=== PATIENT | male | born 1965 | race Caucasian/White ===

== ENCOUNTER 2016-08-17 19:34 | Emergency (ER) | payer BC ==
[~2016-08-17] VITALS: Ht 182.9 cm; Wt 114.0 kg
[~2016-08-17 19:34] MED LIST: CIAL2.5T PO; LISI-586 PO; RIVA15 PO
[2016-08-17 19:42] VITALS: BP 124/87; PULSE 81; RESP 16; TEMP 98.2; O2SAT 96
[2016-08-17] MEDS ORDERED: KETOROLAC TROMETHAMINE 60 MG/2 ML (IM) VIAL IM ONE (20:00)
[2016-08-17] MEDS ORDERED: DEXAMETHASONE SOD PHOS 4 MG/ML VIAL IM ONE (20:00)
[2016-08-17] MEDS ORDERED: INDO50CA PO (20:01)
[2016-08-17] MEDS ORDERED: PRED20 PO (20:01)
[2016-08-17] MEDS ORDERED: ALLO100T PO (20:03)
[2016-08-17] MEDS ORDERED: AMLO5TAB2 PO (20:03)
[2016-08-17] MEDS ORDERED: LISI-515 PO (20:03)
--- NOTE | 2016-08-17 20:11 | PD ---
HPI Chief Complaint: Pain: Acute or Chronic Time Seen by Provider: 20:07 Travel History International Travel<30 days: No Contact w/Intl Traveler<30days: No Traveled to known affect area: No History of Present Illness HPI 51-year-old male that presents to the ED for evaluation of gout. Per patient he has a history of chronic out. Per patient he gets about 2 attacks a year. Patient takes allopurinol to help with the uremic acid. Per patient the pain started on it became more severe today. Per patient his been taking his medications as prescribed. Per patient the pain is on the left MIP of the left great toe. He denies any injuries. No fevers chills or sweats. Per patient the pain feels similar to his previous gout. Per patient sometimes he does require medications to help with his gout flares. He denies any chest pain or shortness of breath. No other medical problems. No allergies to medication. Has not seen anybody for this. Per patient the pain is 7 out of 10. Burning. No radiated. PFSH Past Medical History Heart Rhythm Problems: No Cancer: No Cardiovascular Problems: Yes Chest Pain: Yes (pe) Congestive Heart Failure: No Diabetes: No Diminished Hearing: No Endocrine: No Gout: Yes Genitourinary: No Hypertension: Yes Musculoskeletal: No Neurologic: No Psychiatric: No Reproductive: No Respiratory: No Thyroid Disease: No Tetanus Vaccination: < 5 Years Influenza Vaccination: No Past Surgical History Abdominal Surgery: No Cardiac Surgery: No Ear Surgery: No Endocrine Surgery: No Eye Surgery: No Thoracic Surgery: No Other Surgery: Yes Social History Alcohol Use: Yes (1-2 DAILY) Tobacco Use: No Substance Use: No Allergies-Medications (Allergen,Severity, Reaction): Coded Allergies: No Known Allergies (Unverified , 08/17/16) Reported Meds & Prescriptions Reported Meds & Active Scripts Active Prednisone 20 Mg Tab 20 Mg PO BID Indomethacin 50 Mg Cap 50 Mg PO TID PRN Take with food, milk, or antacids to decrease stomach adverse effects. Reported Amlodipine (Amlodipine Besylate) 5 Mg Tab 5 Mg PO DAILY Allopurinol 100 Mg Tab 100 Mg PO DAILY Lisinopril 20 Mg Tab 20 Mg PO DAILY Review of Systems Except as stated in HPI: all other systems reviewed are Neg Physical Exam Narrative GENERAL: SKIN: Warm and dry. HEAD: Atraumatic. Normocephalic. EYES: Pupils equal and round. No scleral icterus. No injection or drainage. ENT: No nasal bleeding or discharge. Mucous membranes pink and moist. Tongue is midline. No uvula deviation. NECK: Trachea midline. No JVD. CARDIOVASCULAR: Regular rate and rhythm. RESPIRATORY: No accessory muscle use. Clear to auscultation. Breath sounds equal bilaterally. GASTROINTESTINAL: Abdomen soft, non-tender, nondistended. Hepatic and splenic margins not palpable. MUSCULOSKELETAL: Extremities without clubbing, cyanosis, or edema. No obvious deformities. Patient has full range of motion of the upper and lower extremities bilaterally. Patient does have swelling and redness not on the MIP joint of the left great toe. Full range of motion of the toe but very tender to touch. No sign of infection. Good capillary refill. No bruising or deformity noted. NEUROLOGICAL: Awake and alert. No obvious cranial nerve deficits. Motor grossly within normal limits. Five out of 5 muscle strength in the arms and legs. Normal speech. PSYCHIATRIC: Appropriate mood and affect; insight and judgment normal. Data Data Last Documented VS Vital Signs Date Time Temp Pulse Resp B/P Pulse Ox O2 Delivery O2 Flow Rate FiO2 08/17/16 20:00 08/17/16 19:42 98.2 81 16 96 Orders Ketorolac Inj (Toradol Inj) (08/17/16 20:00) Dexamethasone Inj (Decadron Inj) (08/17/16 20:00) [facility] Medical Decision Making Medical Screen Exam Complete: Yes Emergency Medical Condition: Yes Medical Record Reviewed: Yes Differential Diagnosis Acute gout flare versus gout versus acute on chronic pain Narrative Course 51-year-old male that presents to the ED for evaluation of gout flare. Patient was properly examined and was found to have signs and symptoms consistent with gout flare. No sign of acute medical distress. This time and do recommend Toradol and dexamethasone shot. Patient's agreement with this. Patient will be sent home with prescriptions for indomethacin and prednisone to help with the symptoms. Patient was told to follow with PCP. Continue medications. Continue diet. See ED worsening symptoms. Ice or warm compresses as needed. Diagnosis Primary Impression: Gout flare Qualified Code: M10.9 - Acute gout involving toe of left foot, unspecified cause Patient Instructions: General Instructions Additional Instructions: Take medications as prescribed. Ice as needed. Follow with PCP. See ED worsening symptoms. Med/Other Pt SpecificInfo: Prescription(s) given Scripts Prednisone 20 Mg Tab20 Mg PO BID #10 TAB Prov:Elmira Regalado DO 08/17/16 Indomethacin 50 Mg Cap50 Mg PO TID PRN (PAIN SCALE 1 TO 10) #20 CAP Ref 0 Take with food, milk, or antacids to decrease stomach adverse effects. Prov:Elmira Regalado 08/17/16 Disposition: 01 DISCHARGE HOME Condition: Stable Osmany Cast Aug 17, 2016 20:11
== END 2016-08-17 20:20 | disposition home or self-care (01) ==
LOC: PHEFT 19:34
DX: M10.9 Gout, unspecified (principal); I10 Essential (primary) hypertension; F10.10 Alcohol abuse, uncomplicated
CPT/HCPCS: 96372; 99283; J1100; J1885

== ENCOUNTER 2017-02-19 00:38 | Inpatient (IN) | payer OTHER, BC ==
[2017-02-19] VITALS (9 sets, daily range): BP systolic 115–165; BP diastolic 72–99; PULSE 67–77; RESP 16–18; TEMP 96.7–98.6; O2SAT 95–98
[~2017-02-19] VITALS: Ht 182.9 cm; Wt 100.7 kg
[~2017-02-19 00:38] MED LIST changes: +ALLO100T PO; +AMLO5TAB2 PO; -CIAL2.5T PO; +INDO50CA PO; +LISI-515 PO; -LISI-586 PO; +PRED20 PO; -RIVA15 PO
[2017-02-19] MEDS ORDERED: BUPR100T4 PO (00:49)
[2017-02-19 01:14] LABS: AUTOMATED NEUTROPHIL # 4.4 TH/MM3 (1.8-7.7); BASOPHIL # 0.1 TH/MM3 (0-0.2); BASOPHIL % 1.2 % (0.0-2.0); EOSINOPHIL # 0.3 TH/MM3 (0-0.4); HEMATOCRIT 44.4 % (39.0-51.0); HEMOGLOBIN 14.9 GM/DL (13.0-17.0); LYMPH % 21.1 % (9.0-44.0); LYMPHOCYTE # 1.4 TH/MM3 (1.0-4.8); MEAN CELL VOLUME 84.6 FL (80.0-100.0); MEAN CORPUSCULAR HEMOGLOBIN 28.5 PG (27.0-34.0); MEAN CORPUSCULAR HGB CONC 33.7 % (32.0-36.0); MEAN PLATELET VOLUME 7.3 FL (7.0-11.0); MONO % 9.1 % (0.0-8.0); MONOCYTE # 0.6 TH/MM3 (0-0.9); NEUT % 63.6 % (16.0-70.0); PLATELET COUNT 234 TH/MM3 (150-450); RED BLOOD COUNT 5.25 MIL/MM3 (4.50-5.90); RED CELL DISTRIBUTION WIDTH 13.6 % (11.6-17.2); WHITE BLOOD COUNT 6.9 TH/MM3 (4.0-11.0)
[2017-02-19 01:24] LABS: CHLORIDE 102 MEQ/L (98-107); SODIUM (NA) 138 MEQ/L (136-145)
[2017-02-19 01:27] LABS: CALCIUM 9.5 MG/DL (8.5-10.1)
[2017-02-19 01:28] LABS: ALBUMIN 4.1 GM/DL (3.4-5.0); BICARBONATE 28.4 MEQ/L (21.0-32.0); BLOOD UREA NITROGEN 12 MG/DL (7-18); GLUCOSE,RANDOM 100 MG/DL (74-106); LIPASE 308 U/L (73-393)
[2017-02-19] MEDS ORDERED: SODIUM CHLOR 0.9% 1000 ML INJ 1,000 ML IV SCH (01:28)
[2017-02-19] MEDS ORDERED: PANTOPRAZOLE SODIUM 40 MG VIAL IVP ONE (01:30)
[2017-02-19] MEDS ORDERED: ONDANSETRON HCL 4 MG/2 ML VIAL IVP ONE (01:30)
[2017-02-19] MEDS ORDERED: SODIUM CHLORIDE 0.9% FLUSH 10 ML FLUSH IV FLUSH PRN ×2 (01:30→03:45)
[2017-02-19] MEDS ORDERED: MORPHINE SULFATE 4 MG/ML INJ IV PUSH ONE (01:30)
[2017-02-19] MEDS ORDERED: FAMOTIDINE 20 MG/2 ML VIAL IV PUSH ONE (01:30)
[2017-02-19 01:31] LABS: ALT (GPT) 26 U/L (12-78); AST (GOT) 15 U/L (15-37); GLOMERULAR FILTRATION RATE 70 ML/MIN (>89)
[2017-02-19 01:32] LABS: TOTAL BILIRUBIN ADULT 1.1 MG/DL (0.2-1.0); TOTAL PROTEIN 7.7 GM/DL (6.4-8.2)
[2017-02-19 01:34] LABS: ALKALINE PHOSPHATASE 101 U/L (45-117)
[2017-02-19] MEDS ORDERED: MORPHINE SULFATE 8 MG/ML INJ IV PUSH ONE (01:45)
[2017-02-19] MEDS ORDERED: IOHEXOL 350 MG/ML 10 ML VIAL (for RAD DIAG) IVCONTRAST ONE (02:17)
--- NOTE | 2017-02-19 02:25 | PD ---
HPI Chief Complaint: Abdominal Pain Time Seen by Provider: 01:19 Travel History International Travel<30 days: No Contact w/Intl Traveler<30days: No Traveled to known affect area: No History of Present Illness HPI The patient is a 52-year-old male that complains of upper abdominal pain, slightly to the right of midline, since 6 PM. He said he had pain like this before last week but this went away. He states he has been belching. He denies any nausea. He denies any food intolerance. He states his last bowel movement was yesterday morning, about 18 hours ago and was normal. He denies any melanotic or bloody stools. PFSH Past Medical History Arthritis: Yes (RIGHT KNEE) Anxiety: Yes Depression: Yes Heart Rhythm Problems: No Cancer: No Cardiovascular Problems: Yes Chest Pain: Yes (PULMONARY EMBOLISM) Congestive Heart Failure: No Diabetes: No Diminished Hearing: No Endocrine: No Gout: Yes Genitourinary: No Hypertension: Yes Implanted Vascular Access Dvce: No Musculoskeletal: No Neurologic: No Psychiatric: No Reproductive: No Respiratory: No Thyroid Disease: No Tetanus Vaccination: > 5 Years Influenza Vaccination: No Past Surgical History Abdominal Surgery: No Cardiac Surgery: No Ear Surgery: No Endocrine Surgery: No Eye Surgery: No Joint Replacement: Yes (RIGHT TOTAL KNEE) Thoracic Surgery: No Other Surgery: Yes Social History Alcohol Use: No (QUIT DEC 02, 2016) Tobacco Use: No (QUIT 1994) Substance Use: No Allergies-Medications (Allergen,Severity, Reaction): Coded Allergies: No Known Allergies (Unverified Adverse Reaction, Unknown, 02/19/17) Reported Meds & Prescriptions Reported Meds & Active Scripts Active Prednisone 20 Mg Tab 20 Mg PO BID Indomethacin 50 Mg Cap 50 Mg PO TID PRN Take with food, milk, or antacids to decrease stomach adverse effects. Reported Bupropion HCl 100 Mg Tab 300 Mg PO DAILY Amlodipine (Amlodipine Besylate) 5 Mg Tab 5 Mg PO DAILY Allopurinol 100 Mg Tab 300 Mg PO DAILY Lisinopril 20 Mg Tab 20 Mg PO DAILY Review of Systems Except as stated in HPI: all other systems reviewed are Neg Physical Exam Narrative GENERAL: The patient is alert, oriented 3 in moderate apparent distress with his abdominal discomfort. His vital signs show blood pressure 165/99 but are otherwise normal. SKIN: Focused skin assessment warm/dry. HEAD: Atraumatic. Normocephalic. EYES: Pupils equal and round. No scleral icterus. No injection or drainage. ENT: No nasal bleeding or discharge. Mucous membranes pink and moist. NECK: Trachea midline. No JVD. CARDIOVASCULAR: Regular rate and rhythm. No murmur appreciated. RESPIRATORY: No accessory muscle use. Clear to auscultation. Breath sounds equal bilaterally. GASTROINTESTINAL: Abdomen soft, with tenderness to direct palpation in the right upper quadrant, slightly to the right of midline, nondistended. Hepatic and splenic margins not palpable. No guarding or rebound is present. MUSCULOSKELETAL: No obvious deformities. No clubbing. No cyanosis. No edema. NEUROLOGICAL: Awake and alert. No obvious cranial nerve deficits. Motor grossly within normal limits. Normal speech. PSYCHIATRIC: Appropriate mood and affect; insight and judgment normal. RECTAL EXAM: No masses or tenderness, stool is brown and guaiac-negative. Data Data Last Documented VS Vital Signs Date Time Temp Pulse Resp B/P (MAP) Pulse Ox O2 Delivery O2 Flow Rate FiO2 02/19/17 02:40 74 151/74 (99) 97 Room Air 02/19/17 02:13 16 02/19/17 00:41 97.2 Orders Orders Complete Blood Count With Diff (02/19/17 00:59) Comprehensive Metabolic Panel (02/19/17 00:59) Urinalysis - C+S If Indicated (02/19/17 00:59) Iv Access Insert/Monitor (02/19/17 00:59) Oximetry (02/19/17 00:59) Lipase (02/19/17 00:59) Ct Abd/Pel W Iv Contrast(Rout) (02/19/17 01:28) Ecg Monitoring (02/19/17 01:28) Ondansetron Inj (Zofran Inj) (02/19/17 01:30) Pantoprazole Inj (Protonix Inj) (02/19/17 01:30) Sodium Chlor 0.9% 1000 Ml Inj (Ns 1000 M (02/19/17 01:28) Sodium Chloride 0.9% Flush (Ns Flush) (02/19/17 01:30) Famotidine Inj (Pepcid Inj) (02/19/17 01:30) Morphine Inj (Morphine Inj) (02/19/17 01:45) Iohexol 350 Inj (Omnipaque 350 Inj) (02/19/17 02:17) Piperacil-Tazo 4.5 Gm Premix (Zosyn 4.5 (02/19/17 02:45) Labs Laboratory Tests Test 02/19/17 01:05 White Blood Count 6.9 TH/MM3 Red Blood Count 5.25 MIL/MM3 Hemoglobin 14.9 GM/DL Hematocrit 44.4 % Mean Corpuscular Volume 84.6 FL Mean Corpuscular Hemoglobin 28.5 PG Mean Corpuscular Hemoglobin Concent 33.7 % Red Cell Distribution Width 13.6 % Platelet Count 234 TH/MM3 Mean Platelet Volume 7.3 FL Neutrophils (%) (Auto) 63.6 % Lymphocytes (%) (Auto) 21.1 % Monocytes (%) (Auto) 9.1 % Eosinophils (%) (Auto) 5.0 % Basophils (%) (Auto) 1.2 % Neutrophils # (Auto) 4.4 TH/MM3 Lymphocytes # (Auto) 1.4 TH/MM3 Monocytes # (Auto) 0.6 TH/MM3 Eosinophils # (Auto) 0.3 TH/MM3 Basophils # (Auto) 0.1 TH/MM3 CBC Comment DIFF FINAL Differential Comment Blood Urea Nitrogen 12 MG/DL Creatinine 1.10 MG/DL Random Glucose 100 MG/DL Total Protein 7.7 GM/DL Albumin 4.1 GM/DL Calcium Level 9.5 MG/DL Alkaline Phosphatase 101 U/L Aspartate Amino Transf (AST/SGOT) 15 U/L Alanine Aminotransferase (ALT/SGPT) 26 U/L Total Bilirubin 1.1 MG/DL Sodium Level 138 MEQ/L Potassium Level 3.8 MEQ/L Chloride Level 102 MEQ/L Carbon Dioxide Level 28.4 MEQ/L Anion Gap 8 MEQ/L Estimat Glomerular Filtration Rate 70 ML/MIN Lipase 308 U/L MDM Medical Decision Making Medical Screen Exam Complete: Yes Emergency Medical Condition: Yes Medical Record Reviewed: Yes Interpretation(s) The CBC is normal. The complete metabolic profile shows a GFR of 70, total bilirubin 1.1 but is otherwise unremarkable. The lipase is normal at 308. The CT of the abdomen/pelvis shows mild gallbladder wall thickening with mild pericholecystic fluid. Also noted was a 17 mm exophytic solid mass arising from the anterior medial apex of the right kidney. There is no evidence of hydronephrosis or kidney stone. Differential Diagnosis Ulcer pain, cholelithiasis with colic, cholecystitis, gastritis, colitis, ureterolithiasis Narrative Course The patient came in in severe pain. He likely does have a cholecystitis. It is now 0243 and the patient has pain of a 2/10. He was given 8 mg of morphine IV. All Vela MD Feb 19, 2017 02:25
--- NOTE | 2017-02-19 02:32 | RADRPT ---
EXAM DATE/TIME: 02/19/2017 01:53 [facility] COMPARISON: No previous studies available for comparison. INDICATIONS : Right upper quadrant abdomen pain. IV CONTRAST: 100 cc Omnipaque 350 (iohexol) IV ORAL CONTRAST: No oral contrast ingested. RADIATION DOSE: 19.95 CTDIvol (mGy) MEDICAL HISTORY : Hypertension. SURGICAL HISTORY : None. ENCOUNTER: Initial ACUITY: 1 day PAIN SCALE: 9/10 LOCATION: Right upper quadrant abdomen TECHNIQUE: Volumetric scanning of the abdomen and pelvis was performed. Using automated exposure control and ad justment of the mA and/or kV according to patient size, radiation dose was kept as low as reasonably achievable to obtain optimal diagnostic quality images. DICOM format image data is available electro nically for review and comparison. FINDINGS: LOWER LUNGS: The visualized lower lungs are clear. LIVER: Homogeneous density without lesion. There is no dilation of the biliary tree. There is mild gallblad vel wall thickening and mild pericholecystic fluid identified.. SPLEEN: Mildly enlarged. Tiny low-density focus in the medial splenic parenchyma may be small cyst or hemangi jordyn. PANCREAS: Within normal limits. KIDNEYS: 17 mm exophytic solid mass arising from the anterior medial apex of the right kidney. Tiny right kala l cyst involving posterior midpole cortex. No evidence of hydronephrosis or kidney stone. ADRENAL GLANDS: Within normal limits. VASCULAR: There is no aortic aneurysm. BOWEL/MESENTERY: The stomach, small bowel, and colon demonstrate no acute abnormality. There is no free intraperitone al air or fluid. ABDOMINAL WALL: Tiny fat containing umbilical hernia. RETROPERITONEUM: There is no lymphadenopathy. BLADDER: No wall thickening or mass. REPRODUCTIVE: Within normal limits. INGUINAL: There is no lymphadenopathy or hernia. MUSCULOSKELETAL: Within normal limits for patient age. CONCLUSION: Abnormal gallbladder appearance. Tiny solid mass involving the apex of the right kidney. Mild splenomegaly. Rene Carlos MD on February 19, 2017 at 2:25 Board Certified Radiologist. This report was verified electronically.
[2017-02-19] MEDS ORDERED: PIPERACIL-TAZO 4.5 GM PREMIX 100 ML IV ONE (02:45)
[2017-02-19] MEDS ORDERED: BISACODYL 10 MG SUPP RECTAL PRN (03:45)
[2017-02-19] MEDS ORDERED: SENNOSIDES 8.6 MG TAB PO PRN (03:45)
[2017-02-19] MEDS ORDERED: ONDANSETRON HCL 4 MG/2 ML VIAL IVP PRN (03:45)
[2017-02-19] MEDS ORDERED: ACETAMINOPHEN 325 MG TAB PO PRN (03:45)
[2017-02-19] MEDS ORDERED: NALOXONE HCL 0.4 MG/ML AMP IV PUSH PRN (03:45)
[2017-02-19] MEDS ORDERED: LACTULOSE SYRUP 20 GM/30 ML CUP PO PRN (03:45)
[2017-02-19] MEDS ORDERED: MAGNESIUM HYDROXIDE SUSP 30 ML CUP PO PRN (03:45)
[2017-02-19 03:52] LABS: BILIRUBIN, URINE NEG (NEG); BLOOD, URINE NEG (NEG); GLUCOSE,URINE NEG (NEG); KETONE, URINE NEG (NEG); NITRITE,URINE NEG (NEG); PH, URINE 5.5 (5.0-8.5); URINE LEUKOCYTE ESTERASE NEG (NEG)
[2017-02-19 04:06] LABS: RBC, URINE 0-2 /hpf (0-3); SQUAMOUS EPITHELIAL CELL URINE 0-5 /hpf (0-5); URINE COLOR STRAW (YELLW/STRAW); WBC, URINE 0-2 /hpf (0-5)
[2017-02-19] MEDS: MORPHINE SULFATE 4 MG/ML INJ IV PUSH PRN ×3 (04:52→16:22)
--- NOTE | 2017-02-19 08:23 | PD.CONS ---
HPI Consult Requested By Primary Care Physician Morro Aguila MD Past Family Social History Allergies: Coded Allergies: No Known Allergies (Unverified Allergy, Unknown, 02/19/17) Active Ordered Medications Current Medications Medications (Trade) Dose Ordered Sig/Cherie Route Start Time Stop Time Status Last Admin (NS Flush) 2 ml UNSCH PRN IV FLUSH 02/19/17 03:45 02/19/17 04:52 (NS Flush) 2 ml BID IV FLUSH 02/19/17 09:00 (Tylenol) 650 mg Q4H PRN PO 02/19/17 03:45 (Zofran Inj) 4 mg Q6H PRN IVP 02/19/17 03:45 (Narcan Inj) 0.4 mg UNSCH PRN IV PUSH 02/19/17 03:45 (Elaina-Colace) 1 tab BID PO 02/19/17 09:00 (Milk Of Magnesia Liq) 30 ml Q12H PRN PO 02/19/17 03:45 (Senokot) 17.2 mg Q12H PRN PO 02/19/17 03:45 (Dulcolax Supp) 10 mg DAILY PRN RECTAL 02/19/17 03:45 (Lactulose Liq) 30 ml DAILY PRN PO 02/19/17 03:45 Piperacillin Sod/ Tazobactam Sod 100 ml @ 200 mls/hr Q6H IV 02/19/17 09:00 (Morphine Inj) 4 mg Q3H PRN IV PUSH 02/19/17 03:45 02/19/17 04:52 Physical Exam Vital Signs Vital Signs Date Time Temp Pulse Resp B/P (MAP) Pulse Ox O2 Delivery O2 Flow Rate FiO2 02/19/17 08:00 98.6 75 18 115/79 (91) 95 02/19/17 04:07 02/19/17 04:00 96.7 72 18 120/75 (90) 96 02/19/17 02:40 74 151/74 (99) 97 Room Air 02/19/17 02:13 75 16 97 Room Air 02/19/17 01:47 72 97 Room Air 02/19/17 00:41 97.2 67 16 165/99 (121) 98 Laboratory Laboratory Tests Test 02/19/17 01:05 02/19/17 03:45 White Blood Count 6.9 Red Blood Count 5.25 Hemoglobin 14.9 Hematocrit 44.4 Mean Corpuscular Volume 84.6 Mean Corpuscular Hemoglobin 28.5 Mean Corpuscular Hemoglobin Concent 33.7 Red Cell Distribution Width 13.6 Platelet Count 234 Mean Platelet Volume 7.3 Neutrophils (%) (Auto) 63.6 Lymphocytes (%) (Auto) 21.1 Monocytes (%) (Auto) 9.1 Eosinophils (%) (Auto) 5.0 Basophils (%) (Auto) 1.2 Neutrophils # (Auto) 4.4 Lymphocytes # (Auto) 1.4 Monocytes # (Auto) 0.6 Eosinophils # (Auto) 0.3 Basophils # (Auto) 0.1 CBC Comment DIFF FINAL Differential Comment Blood Urea Nitrogen 12 Creatinine 1.10 Random Glucose 100 Total Protein 7.7 Albumin 4.1 Calcium Level 9.5 Alkaline Phosphatase 101 Aspartate Amino Transf (AST/SGOT) 15 Alanine Aminotransferase (ALT/SGPT) 26 Total Bilirubin 1.1 Sodium Level 138 Potassium Level 3.8 Chloride Level 102 Carbon Dioxide Level 28.4 Anion Gap 8 Estimat Glomerular Filtration Rate 70 Lipase 308 Urine Color STRAW Urine Turbidity CLEAR Urine pH 5.5 Urine Specific [place] 1.005 Urine Protein NEG Urine Glucose (UA) NEG Urine Ketones NEG Urine Occult Blood NEG Urine Nitrite NEG Urine Bilirubin NEG Urine Leukocyte Esterase NEG Urine RBC 0-2 Urine WBC 0-2 Urine Squamous Epithelial Cells 0-5 Urine Bacteria NONE Microscopic Urinalysis Comment CULT NOT INDICATED Result Diagram: 02/19/1710402/19/17104 India Kinney Feb 19, 2017 08:23
[2017-02-19] MEDS: SODIUM CHLORIDE 0.9% FLUSH 10 ML FLUSH IV FLUSH SCH ×2 (08:45→21:18)
[2017-02-19] MEDS: SODIUM CHLOR 0.9% 1000 ML INJ 1,000 ML IV SCH ×2 (08:45→17:21)
[2017-02-19] MEDS: DOCUSATE SODIUM 50 MG/SENNA 8.6 MG TAB PO SCH ×2 (08:46→21:18)
--- NOTE | 2017-02-19 08:49 | RADRPT ---
EXAM DATE/TIME: 02/19/2017 07:53 [facility] COMPARISON: No previous studies available for comparison. INDICATIONS : Right upper quadrant pain. MEDICAL HISTORY : Hypertension. Arthritis. Gout. Pulmonary embolism. SURGICAL HISTORY : Total knee replacement, right. ENCOUNTER: Initial ACUITY: 2 days PAIN SCORE: 4/10 LOCATION: Right upper quadrant MEASUREMENTS: LIVER: 15.6 cm length COMMON DUCT: 4 mm RIGHT KIDNEY: 11.3 x 6.6 x 5.3 cm FINDINGS: LIVER: There is increased echogenicity throughout the liver. No dilated biliary ducts. The portal system is patent. No evidence of ascites. COMMON DUCT: No intraluminal mass or stone visualized. GALLBLADDER: No definite stones are in the gallbladder. There is some sludge in the gallbladder. There is thickeni ng of the gallbladder wall 5 mm. There is a trace of fluid around the gallbladder. PANCREAS: The visualized portions are within normal limits. RIGHT KIDNEY: No evidence of hydronephrosis, stone, or mass. CONCLUSION: 1. There is sludge in the gallbladder with thickening of the gallbladder wall 5 mm. This suggests chr onic gallbladder disease. 2. No definite biliary tract obstruction. 3. Diffuse fatty infiltration of the liver. Greg Almeida MD on February 19, 2017 at 8:45 Board Certified Radiologist. This report was verified electronically.
[2017-02-19] MEDS ORDERED: PIPERACIL-TAZO 4.5 GM PREMIX 100 ML IV SCH (09:00)
--- NOTE | 2017-02-19 09:04 | HHI.HP ---
[facility]ician Morro Aguila MD Admission Diagnosis acute cholecystitis Diagnoses: Travel History International Travel<30 Days: No Contact w/Intl Traveler <30 Da: No Traveled to Known Affected Are: No History of Present Illness This is a pleasant 52 year-old male with past medical history of hypertension, gout, hemochromatosis who presented to the ER yesterday after developing right upper quadrant abdominal pain yesterday evening. The patient states that he ate salad and 3 slices of pork at 6 PM for dinner. Several hours later he started to develop 9 out of 10 right upper quadrant pain which was persistent, no alleviating factors. Associated with nausea but no vomiting. Last bowel movement yesterday morning and was normal. The patient states he also had an episode of right upper quadrant abdominal pain several weeks ago but that it resolves quickly. Patient denies fevers or chills. In the emergency department, abdominal CT scan showed mild gallbladder wall thickening and mild pericholecystic fluid, also a 17 mm exophytic solid mass on the anterior medial right kidney. Gallbladder ultrasound showed sludge in the gallbladder and thickening of the wall however no stones. Gen. surgery was consulted and plans to take the patient for laparoscopic cholecystectomy this morning. Patient continues to have right upper quadrant pain but states it is moderate currently. Patient not previously aware of the kidney mass. He does follow with Dr. Alex Peañ for the hemochromatosis and gets phlebotomy once every 3 months. Patient does endorse decreased appetite and a 30 pound weight loss since knee arthroplasty 3 months ago, denies hematuria. He does have a history of tobacco use quit in 1994. He has a history of PE and DVT in 2015 and was on anticoagulation for 6 months. Review of Systems Constitutional: COMPLAINS OF: Weight loss, DENIES: Fever, Chills Eyes: DENIES: Diplopia, Vision loss Ears, nose, mouth, throat: DENIES: Throat pain, Hoarseness Respiratory: DENIES: Cough, Shortness of breath Cardiovascular: DENIES: Chest pain, Palpitations Gastrointestinal: COMPLAINS OF: Abdominal pain, Nausea, DENIES: Vomiting Genitourinary: DENIES: Hematuria, Dysuria Musculoskeletal: DENIES: Back pain, Neck pain Integumentary: DENIES: Rash Hematologic/lymphatic: DENIES: Lymphadenopathy Neurologic: DENIES: Headache, Localized weakness Psychiatric: DENIES: Anxiety, Confusion Past Family Social History Past Medical History Hemochromatosis Hypertension History of DVT and bilateral pulmonary embolism in 2014 Heterozygous factor V Leiden mutation Gout Past Surgical History Right hand surgery, right total knee arthroplasty November 2016 Reported Medications Allergies Coded Allergies Type Severity Reaction Last Updated Verified No Known Allergies Allergy Unknown 02/19/17 No Active Scripts Medications Dose Route/Sig Max Daily Dose Days Date Category Dose Instructions Bupropion HCl 100 Mg Tab 300 Mg PO DAILY 02/19/17 Reported Amlodipine (Amlodipine Besylate) 5 Mg Tab 5 Mg PO DAILY 08/17/16 Reported Allopurinol 100 Mg Tab 300 Mg PO DAILY 08/17/16 Reported Lisinopril 20 Mg Tab 20 Mg PO DAILY 08/17/16 Reported Prednisone 20 Mg Tab 20 Mg PO BID 08/17/16 Rx Indomethacin 50 Mg Cap 50 Mg PO TID PRN 08/17/16 Rx Take with food, milk, or antacids to decrease stomach adverse effects. Allergies: Coded Allergies: No Known Allergies (Unverified Allergy, Unknown, 02/19/17) Family History Father with hemochromatosis Social History Quit smoking in 1994. Quit drinking alcohol 3 months ago would drink 1-2 beers several times a week. He is and his is also getting a laparoscopic cholecystectomy today. Physical Exam Vital Signs Vital Signs Date Time Temp Pulse Resp B/P (MAP) Pulse Ox O2 Delivery O2 Flow Rate FiO2 02/19/17 08:00 98.6 75 18 115/79 (91) 95 02/19/17 04:07 02/19/17 04:00 96.7 72 18 120/75 (90) 96 02/19/17 02:40 74 151/74 (99) 97 Room Air 02/19/17 02:13 75 16 97 Room Air 02/19/17 01:47 72 97 Room Air 02/19/17 00:41 97.2 67 16 165/99 (121) 98 Physical Exam GENERAL: This is a well-nourished, well-developed patient, in no apparent distress. SKIN: No rashes, ecchymoses or lesions. Cool and dry. HEAD: Atraumatic. Normocephalic. . EYES: Pupils equal round and reactive. Extraocular motions intact. No scleral icterus. No injection or drainage. ENT: Nose without bleeding, purulent drainage or septal hematoma. Throat without erythema, tonsillar hypertrophy or exudate. Uvula midline. Airway patent. NECK: Trachea midline. No JVD or lymphadenopathy. Supple, nontender, no meningeal signs. CARDIOVASCULAR: Regular rate and rhythm without murmurs, gallops, or rubs. RESPIRATORY: Clear to auscultation. Breath sounds equal bilaterally. No wheezes , rales, or rhonchi. GASTROINTESTINAL: Abdomen soft, non-tender, TTP RUQ without guarding. No hepato- splenomegaly, or palpable masses. MUSCULOSKELETAL: Extremities without clubbing, cyanosis, or edema. No joint tenderness, effusion, or edema noted. No calf tenderness. NEUROLOGICAL: Awake and alert. Cranial nerves II through XII intact. Motor and sensory grossly within normal limits. Five out of 5 muscle strength in all muscle groups. Normal speech. Laboratory Laboratory Tests Test 02/19/17 01:05 02/19/17 03:45 White Blood Count 6.9 Red Blood Count 5.25 Hemoglobin 14.9 Hematocrit 44.4 Mean Corpuscular Volume 84.6 Mean Corpuscular Hemoglobin 28.5 Mean Corpuscular Hemoglobin Concent 33.7 Red Cell Distribution Width 13.6 Platelet Count 234 Mean Platelet Volume 7.3 Neutrophils (%) (Auto) 63.6 Lymphocytes (%) (Auto) 21.1 Monocytes (%) (Auto) 9.1 Eosinophils (%) (Auto) 5.0 Basophils (%) (Auto) 1.2 Neutrophils # (Auto) 4.4 Lymphocytes # (Auto) 1.4 Monocytes # (Auto) 0.6 Eosinophils # (Auto) 0.3 Basophils # (Auto) 0.1 CBC Comment DIFF FINAL Differential Comment Blood Urea Nitrogen 12 Creatinine 1.10 Random Glucose 100 Total Protein 7.7 Albumin 4.1 Calcium Level 9.5 Alkaline Phosphatase 101 Aspartate Amino Transf (AST/SGOT) 15 Alanine Aminotransferase (ALT/SGPT) 26 Total Bilirubin 1.1 Sodium Level 138 Potassium Level 3.8 Chloride Level 102 Carbon Dioxide Level 28.4 Anion Gap 8 Estimat Glomerular Filtration Rate 70 Lipase 308 Urine Color STRAW Urine Turbidity CLEAR Urine pH 5.5 Urine Specific [place] 1.005 Urine Protein NEG Urine Glucose (UA) NEG Urine Ketones NEG Urine Occult Blood NEG Urine Nitrite NEG Urine Bilirubin NEG Urine Leukocyte Esterase NEG Urine RBC 0-2 Urine WBC 0-2 Urine Squamous Epithelial Cells 0-5 Urine Bacteria NONE Microscopic Urinalysis Comment CULT NOT INDICATED Result Diagram: 02/19/1710402/19/17104 Caprini VTE Risk Assessment Caprini VTE Risk Assessment: Mod/High Risk (score >= 2) Caprini Risk Assessment Model Point Value = 1 Point Value = 2 Point Value = 3 Point Value = 5 Age 41-60 Minor surgery BMI > 25 kg/m2 Swollen legs Varicose veins or History of unexplained or recurrent spontaneous Oral contraceptives or hormone replacement Sepsis (< 1 month) Serious lung disease, including pneumonia (< 1 month) Abnormal pulmonary function Acute myocardial infarction Congestive heart failure (< 1 month) History of inflammatory bowel disease Medical patient at bed rest Age 61-74 Arthroscopic surgery Major open surgery (> 45 min) Laparoscopic surgery (> 45 min) Malignancy Confined to bed (> 72 hours) Immobilizing plaster cast Central venous access Age >= 75 History of VTE Family history of VTE Factor V Leiden Prothrombin [id number] Lupus anticoagulant Anticardiolipin antibodies Elevated serum homocysteine Heparin-induced thrombocytopenia Other congenital or acquired thrombophilia Stroke (< 1 month) Elective arthroplasty Hip, pelvis, or leg fracture Acute spinal cord injury (< 1 month) Prophylaxis Regimen Total Risk Factor Score Risk Level Prophylaxis Regimen 0-1 Low Early ambulation 2 Moderate Order ONE of the following: *Sequential Compression Device (SCD) *Heparin 5000 units SQ BID 3-4 Higher Order ONE of the following medications: *Heparin 5000 units SQ TID *Enoxaparin/Lovenox 40 mg SQ daily (WT < 150 kg, CrCl > 30 mL/min) *Enoxaparin/Lovenox 30 mg SQ daily (WT < 150 kg, CrCl > 10-29 mL/min) *Enoxaparin/Lovenox 30 mg SQ BID (WT < 150 kg, CrCl > 30 mL/min) AND/OR *Sequential Compression Device (SCD) 5 or more Highest Order ONE of the following medications: *Heparin 5000 units SQ TID (Preferred with Epidurals) *Enoxaparin/Lovenox 40 mg SQ daily (WT < 150 kg, CrCl > 30 mL/min) *Enoxaparin/Lovenox 30 mg SQ daily (WT < 150 kg, CrCl > 10-29 mL/min) *Enoxaparin/Lovenox 30 mg SQ BID (WT < 150 kg, CrCl > 30 mL/min) AND *Sequential Compression Device (SCD) Assessment and Plan Problem List: (1) Acute cholecystitis ICD Code: K81.0 - Acute cholecystitis (2) Hemochromatosis ICD Code: E83.119 - Hemochromatosis, unspecified (3) Right kidney mass ICD Code: N28.89 - Other specified disorders of kidney and ureter (4) Hypertension ICD Code: I10 - Hypertension Status: Acute Assessment and Plan -Acute cholecystitis - per general surgery he is going for laparoscopic cholecystectomy today. -Solid exophytic right kidney mass 17 mm in size - patient informed this may be renal cell carcinoma and he needs outpatient urology follow-up within the next several weeks. Patient provided a copy of his CT scan. Patient to see his primary care physician or fur storage clerk for urology referral. Patient voices understanding. -Hemochromatosis - undergoes phlebotomy every 3 months. No elevation of liver enzymes. -Hypertension - resume lisinopril and Norvasc. -History of DVT and bilateral pulmonary embolism in 2014, Heterozygous factor V Leiden mutation -Gout - resume allopurinol -DVT prophylaxis with SCDs, avoid pharmacologic prophylaxis due to surgery Maria De Jesus Pena MD Feb 19, 2017 09:04
--- NOTE | 2017-02-19 10:07 | PD.CONS ---
cc: Romero Weaver MD HPI Service General Surgery Consult Requested By Dr. Frost Reason for Consult Abdominal pain; Cholecystitis Primary Care Physician Morro Aguila MD History of Present Illness This is a 52-year-old male with a past medical history of right knee arthritis, DVT/PE and hypertension. About 6 PM last night the patient developed severe right upper quadrant pain without associated nausea or vomiting. The patient had salad and pork for dinner. The patient had a similar type episode of abdominal pain without associated nausea or vomiting last week but the pain resolved on its own and the patient went about his normal daily activities. This time, due to the severe abdominal pain without resolution, the patient came to the emergency department. A CT abdomen and pelvis was obtained which showed abnormal gallbladder appearance. The patient has a normal white blood cell count. The patient's liver enzymes are essentially normal. A General Surgery consultation has been requested for evaluation of cholecystitis and possible laparoscopic cholecystectomy. Review of Systems Constitutional: DENIES: Fatigue, Weight loss Endocrine: DENIES: Polydipsia, Polyuria, Polyphagia Eyes: DENIES: Blurred vision Ears, nose, mouth, throat: DENIES: Hearing loss Respiratory: DENIES: Apneas Cardiovascular: DENIES: Chest pain Gastrointestinal: COMPLAINS OF: Abdominal pain, DENIES: Constipation, Diarrhea , Nausea, Vomiting Genitourinary: DENIES: Urinary frequency Musculoskeletal: DENIES: Joint pain Integumentary: DENIES: Abnormal pigmentation Hematologic/lymphatic: DENIES: Bruising Immunologic/allergic: DENIES: Eczema Neurologic: DENIES: Abnormal gait, Headache Psychiatric: DENIES: Confusion, Mood changes, Depression Past Family Social History Past Medical History Right knee arthritis DVT/PE Hypertension Past Surgical History Total right knee replacement Right hand surgery Reported Medications Amlodipine Lisinopril Allopurinol Indomethacin Bupropion Allergies: Coded Allergies: No Known Allergies (Unverified Allergy, Unknown, 02/19/17) Active Ordered Medications Current Medications Medications (Trade) Dose Ordered Sig/Cherie Route Start Time Stop Time Status Last Admin (NS Flush) 2 ml UNSCH PRN IV FLUSH 11/2/17 03:45 02/19/17 04:52 (NS Flush) 2 ml BID IV FLUSH 02/19/17 09:00 (Tylenol) 650 mg Q4H PRN PO 02/19/17 03:45 (Zofran Inj) 4 mg Q6H PRN IVP 02/19/17 03:45 (Narcan Inj) 0.4 mg UNSCH PRN IV PUSH 02/19/17 03:45 (Elaina-Colace) 1 tab BID PO 02/19/17 09:00 (Milk Of Magnesia Liq) 30 ml Q12H PRN PO 02/19/17 03:45 (Senokot) 17.2 mg Q12H PRN PO 02/19/17 03:45 (Dulcolax Supp) 10 mg DAILY PRN RECTAL 02/19/17 03:45 (Lactulose Liq) 30 ml DAILY PRN PO 02/19/17 03:45 (Morphine Inj) 4 mg Q3H PRN IV PUSH 02/19/17 03:45 02/19/17 08:54 Sodium Chloride 1,000 ml @ 100 mls/hr Q10H IV 02/19/17 08:30 02/19/17 08:45 Piperacillin Sod/ Tazobactam Sod 50 ml @ 100 mls/hr Q8H IV 02/19/17 09:00 (Zyloprim) 300 mg DAILY PO 02/20/17 09:00 (Norvasc) 5 mg DAILY PO 02/20/17 09:00 (Prinivil) 20 mg DAILY PO 02/20/17 09:00 Family History Noncontributory Social History Denies tobacco use Denies EtOH use Denies illicit drug use Physical Exam Vital Signs Vital Signs Date Time Temp Pulse Resp B/P (MAP) Pulse Ox O2 Delivery O2 Flow Rate FiO2 02/19/17 08:00 98.6 75 18 115/79 (91) 95 02/19/17 04:07 02/19/17 04:00 96.7 72 18 120/75 (90) 96 02/19/17 02:40 74 151/74 (99) 97 Room Air 02/19/17 02:13 75 16 97 Room Air 02/19/17 01:47 72 97 Room Air 02/19/17 00:41 97.2 67 16 165/99 (121) 98 Physical Exam GENERAL: 52 year old male resting in bed in no acute distress. SKIN: Warm and dry. HEAD: Atraumatic. Normocephalic. EYES: Pupils equal and round. No scleral icterus. No injection or drainage. ENT: No nasal bleeding or discharge. Mucous membranes pink and moist. NECK: Trachea midline. CARDIOVASCULAR: Regular rate and rhythm. RESPIRATORY: No accessory muscle use. Clear to auscultation. Breath sounds equal bilaterally. GASTROINTESTINAL: Abdomen soft, nondistended. RUQ tenderness with palpation. No visible scars on abdomen. Small reducible umbilical hernia. MUSCULOSKELETAL: Extremities without clubbing, cyanosis, or edema. No obvious deformities. NEUROLOGICAL: Awake and alert. No obvious cranial nerve deficits. Motor grossly within normal limits. Five out of 5 muscle strength in the arms and legs. Normal speech. PSYCHIATRIC: Appropriate mood and affect; insight and judgment normal. Laboratory Laboratory Tests Test 02/19/17 01:05 02/19/17 03:45 02/19/17 09:40 White Blood Count 6.9 Red Blood Count 5.25 Hemoglobin 14.9 Hematocrit 44.4 Mean Corpuscular Volume 84.6 Mean Corpuscular Hemoglobin 28.5 Mean Corpuscular Hemoglobin Concent 33.7 Red Cell Distribution Width 13.6 Platelet Count 234 Mean Platelet Volume 7.3 Neutrophils (%) (Auto) 63.6 Lymphocytes (%) (Auto) 21.1 Monocytes (%) (Auto) 9.1 Eosinophils (%) (Auto) 5.0 Basophils (%) (Auto) 1.2 Neutrophils # (Auto) 4.4 Lymphocytes # (Auto) 1.4 Monocytes # (Auto) 0.6 Eosinophils # (Auto) 0.3 Basophils # (Auto) 0.1 CBC Comment DIFF FINAL Differential Comment Blood Urea Nitrogen 12 Creatinine 1.10 Random Glucose 100 Total Protein 7.7 Albumin 4.1 Calcium Level 9.5 Alkaline Phosphatase 101 Aspartate Amino Transf (AST/SGOT) 15 Alanine Aminotransferase (ALT/SGPT) 26 Total Bilirubin 1.1 Sodium Level 138 Potassium Level 3.8 Chloride Level 102 Carbon Dioxide Level 28.4 Anion Gap 8 Estimat Glomerular Filtration Rate 70 Lipase 308 Urine Color STRAW Urine Turbidity CLEAR Urine pH 5.5 Urine Specific [place] 1.005 Urine Protein NEG Urine Glucose (UA) NEG Urine Ketones NEG Urine Occult Blood NEG Urine Nitrite NEG Urine Bilirubin NEG Urine Leukocyte Esterase NEG Urine RBC 0-2 Urine WBC 0-2 Urine Squamous Epithelial Cells 0-5 Urine Bacteria NONE Microscopic Urinalysis Comment CULT NOT INDICATED Result Diagram: 02/19/1710402/19/17104 Assessment and Plan Assessment and Plan 52 year old male with RUQ abdominal pain; cholecystitis -Plan for laparoscopic cholecystectomy this afternoon -Nothing by mouth -IVF -Continue Zosyn -Hold all anticoagulation -Obtain consents -Procedure explained in detail to the patient; all questions answered -Discussed with ENOCH Sharma -Thank you for this consult; We will continue to follow Attending Note - Dr. Weaver RUQ tenderness; no other pain Risks, benefits, alternatives, convalescence discussed with patient and ; they vocalize understanding and agree to proceed with surgery. The exam, history, and the medical decision-making described in the above note were completed with the assistance of the mid-level provider. I reviewed and agree with the findings presented. I attest that I had a [id number] encounter with the patient on the same day, and personally performed and documented my assessment and findings in the medical record. Discussed Condition With India Aguirre Dr., RN Feb 19, 2017 10:07 Romero Weaver MD Feb 19, 2017 21:54
[2017-02-19 10:18] LABS: PROTHROMBIN TIME - PATIENT 10.7 SEC (9.8-11.6)
[2017-02-19] MEDS: PIPERACIL-TAZO 3.375 GM PREMIX 50 ML IV SCH ×2 (10:21→17:21)
[2017-02-19] MEDS ORDERED: CHLORHEXIDINE GLUCONATE 2 % 1 PACK (2 CLOTHS) TOPICAL PRN (11:45)
[2017-02-19] MEDS ORDERED: METOPROLOL TARTRATE 25 MG TAB PO PRN (11:45)
[2017-02-19] MEDS ORDERED: SODIUM CHLORID 0.9% 500 ML IV PRN (11:45)
[2017-02-19] MEDS ORDERED: INSULIN HUMAN REGULAR 1,000 UNITS/10 ML VIAL SQ PRN (11:45)
[2017-02-19] MEDS ORDERED: POVIDONE IODINE 5% (ANTISEPSIS KIT) 4 APPLICATIONS EACH NARE PRN (11:45)
[2017-02-19] MEDS ORDERED: LACTATED RINGER'S 1000 ML IV PRN (11:45)
[2017-02-19] MEDS ORDERED: BUPIVACAINE/EPINEPHRINE 0.5% 50 ML VIAL ONE (11:48)
[2017-02-19] MEDS ORDERED: FAMOTIDINE 20 MG/2 ML VIAL ONE (12:20)
[2017-02-19] MEDS ORDERED: ACETAMINOPHEN 1000 MG/100 ML 100 ML IV ONE (12:56)
--- NOTE | 2017-02-19 13:29 | EKG ---
Date Performed: 02/19/2017 Time Performed: 09:49:28 PTAGE: 52 years EKG: Sinus rhythm WITH OCCASIONAL SUPRAVENTRICULAR PREMATURE COMPLEXES MODERATE VOLTAGE CRITERIA FOR LVH, CONSIDER NOR MAL VARIANT NONSPECIFIC T-WAVE ABNORMALITY BORDERLINE ECG Compared to prior tracing no significant ch elizabeth PREVIOUS TRACING : 07/13/2014 12.36 DOCTOR: Seth Stephens Interpretating Date/Time 02/19/2017 13:26:07
[2017-02-19] MEDS ORDERED: HYDR-3288 PO (13:52)
[2017-02-19] MEDS ORDERED: ACETAMINOPHEN/HYDROcodone 325 MG/7.5 MG TAB PO PRN ×2 (14:00)
[2017-02-19] MEDS ORDERED: fentaNYL CITRATE 250 MCG/5 ML AMP ONE (14:10)
[2017-02-19] MEDS ORDERED: MIDAZOLAM HCL 2 MG/2 ML VIAL ONE (14:10)
[2017-02-20] VITALS: BP 114/70; PULSE 89; RESP 20; TEMP 96.7; O2SAT 97
[2017-02-20] MEDS: PIPERACIL-TAZO 3.375 GM PREMIX 50 ML IV SCH ×2 (00:34→09:03)
[2017-02-20] MEDS: SODIUM CHLOR 0.9% 1000 ML INJ 1,000 ML IV SCH (03:53)
[2017-02-20 04:00] VITALS: BP 123/80; PULSE 68; RESP 18; TEMP 97.2; O2SAT 96
[2017-02-20 08:00] VITALS: BP 138/84; PULSE 73; RESP 18; TEMP 97.1; O2SAT 96
[2017-02-20] MEDS: DOCUSATE SODIUM 50 MG/SENNA 8.6 MG TAB PO SCH (08:27)
[2017-02-20] MEDS: SODIUM CHLORIDE 0.9% FLUSH 10 ML FLUSH IV FLUSH SCH (08:27)
[2017-02-20] MEDS ORDERED: ALLOPURINOL 100 MG TAB PO SCH (09:00)
[2017-02-20] MEDS ORDERED: LISINOPRIL 20 MG TAB PO SCH (09:00)
[2017-02-20] MEDS ORDERED: amLODIPine BESYLATE 5 MG TAB PO SCH (09:00)
[2017-02-20 12:00] VITALS: BP 131/79; PULSE 73; RESP 18; TEMP 97.9; O2SAT 97
--- NOTE | 2017-02-20 12:10 | HHI.PR ---
Subjective Remarks Patient states he's having some mild periumbilical pain at the incision which is controlled with oral pain medications. Patient states he also had a hernia repair during surgery, the operative report is pending. He tolerated liquid diet this morning. About to order regular diet lunch. Discussed with patient' s at bedside the small right kidney mass and follow-up with urology. Patient previously established with Dr. Cai who he was seen for testosterone replacement. They will call his office to make an appointment. Patient does have a paper copy of the CT report, discussed with to get the CD from medical records. Objective Vitals Vital Signs Date Time Temp Pulse Resp B/P (MAP) Pulse Ox O2 Delivery O2 Flow Rate FiO2 02/20/17 08:00 97.1 73 18 138/84 (102) 96 02/20/17 04:00 97.2 68 18 123/80 (94) 96 02/20/17 00:00 96.7 89 20 114/70 (85) 97 02/19/17 15:19 98.1 71 18 118/72 (87) 95 02/19/17 14:45 77 02/19/17 14:45 98.0 77 14 135/80 (98) 94 Room Air 02/19/17 14:30 82 14 158/80 (106) 98 Nasal Cannula 2 02/19/17 14:15 71 14 144/86 (105) 98 Nasal Cannula 2 02/19/17 14:00 98.1 73 14 134/75 (94) 98 Nasal Cannula 2 02/19/17 14:00 73 I/O 02/19/17 02/19/17 02/19/17 02/20/17 02/20/17 02/20/17 07:00 15:00 23:00 07:00 15:00 23:00 Intake Total 1100 ml 1200 ml 1580 ml 1570 ml Balance 1100 ml 1200 ml 1580 ml 1570 ml Intake Oral 0 ml 0 ml 480 ml 720 ml IV Total 1100 ml 1200 ml 1100 ml 850 ml # Voids 2 0 2 3 # Bowel Movements 0 0 0 Result Diagram: 02/19/1710402/19/17104 Objective Remarks GENERAL: Well-nourished, well-developed patient. SKIN: Warm and dry. HEAD: Normocephalic. EYES: No scleral icterus. No injection or drainage. NECK: Supple, trachea midline. No JVD or lymphadenopathy. CARDIOVASCULAR: Regular rate and rhythm without murmurs, gallops, or rubs. RESPIRATORY: Breath sounds equal bilaterally. No accessory muscle use. GASTROINTESTINAL: Abdomen soft, appropriately tender to palpation around the incision periumbilical. Nondistended. EXTREMITIES: No cyanosis, or edema. NEUROLOGICAL: Awake, alert, and oriented x 3. Non-focal. A/P Problem List: (1) Acute cholecystitis ICD Code: K81.0 - Acute cholecystitis (2) Hemochromatosis ICD Code: E83.119 - Hemochromatosis, unspecified (3) Right kidney mass ICD Code: N28.89 - Other specified disorders of kidney and ureter (4) Hypertension ICD Code: I10 - Hypertension Status: Acute Assessment and Plan -Acute cholecystitis -status post laparoscopic cholecystectomy yesterday with Dr. Weaver, also hernia repair operative report pending. Patient tolerated liquid diet this morning, will eat solid food for lunch. He's cleared for discharge per general surgery. -Solid exophytic right kidney mass 17 mm in size - patient informed this may be renal cell carcinoma and he needs outpatient urology follow-up within the next several weeks. Patient established with Dr. Cai and will call to make an appointment. Patient provided a copy of his CT scan. Patient voices understanding. -Hemochromatosis - undergoes phlebotomy every [address] Alex Dexter. No elevation of liver enzymes. -Hypertension - continue lisinopril and Norvasc. -History of DVT and bilateral pulmonary embolism in 2014, Heterozygous factor V Leiden mutation -Gout - resume allopurinol Discharge home today after lunch. Follow-up with general surgery in 1-2 weeks. Follow-up with urology Dr. Cai in 1-2 weeks. Maria De Jesus Pena MD Feb 20, 2017 12:10
--- NOTE | 2017-02-20 12:23 | HHI.PR ---
Subjective Subjective Notes Resting in bed No issues overnight Pain well controlled Objective Vitals/I&O Vital Signs Date Time Temp Pulse Resp B/P (MAP) Pulse Ox O2 Delivery O2 Flow Rate FiO2 02/20/17 08:00 97.1 73 18 138/84 (102) 96 02/19/17 14:45 Room Air 02/19/17 14:30 2 Cardiovascular: Regular Lungs: Clear Abdomen: Other (lap sites c/d/i; abdomen soft; minimal tenderness at incisions sites ) Extremities: No edema A/P Assessment and Plan 52 year old male POD1 lap manuel -Advance to heart healthy diet -Pain control -DC IVF -Okay to DC home if tolerates breakfast and lunch -Follow up with Dr. Weaver in about 1 week -[place] rx on chart Attending Note - Dr. Weaver Abdomen benign; steristrips with minimal drainage. The exam, history, and the medical decision-making described in the above note were completed with the assistance of the mid-level provider. I reviewed and agree with the findings presented. I attest that I had a [id number] encounter with the patient on the same day, and personally performed and documented my assessment and findings in the medical record. India Kinney Feb 20, 2017 12:23 Romero Weaver MD Feb 24, 2017 18:19
--- NOTE | 2017-02-20 12:23 | HHI.PR ---
Subjective Subjective Notes Resting in bed No issues overnight Pain well controlled Objective Vitals/I&O Vital Signs Date Time Temp Pulse Resp B/P (MAP) Pulse Ox O2 Delivery O2 Flow Rate FiO2 02/20/17 08:00 97.1 73 18 138/84 (102) 96 02/19/17 14:45 Room Air 02/19/17 14:30 2 Cardiovascular: Regular Lungs: Clear Abdomen: Other (lap sites c/d/i; abdomen soft; minimal tenderness at incisions sites ) Extremities: No edema A/P Assessment and Plan 52 year old male POD1 lap manuel -Advance to heart healthy diet -Pain control -DC IVF -Okay to DC home if tolerates breakfast and lunch -Follow up with Dr. Weaver in about 1 week -[place] rx on chart Attending Note - Dr. Weaver Abdomen benign; steristrips with minimal drainage. The exam, history, and the medical decision-making described in the above note were completed with the assistance of the mid-level provider. I reviewed and agree with the findings presented. I attest that I had a [id number] encounter with the patient on the same day, and personally performed and documented my assessment and findings in the medical record. India Kinney Feb 20, 2017 12:23 Romero Weaver MD Feb 24, 2017 18:19
--- NOTE | 2017-02-20 12:23 | HHI.PR ---
Subjective Subjective Notes Resting in bed No issues overnight Pain well controlled Objective Vitals/I&O Vital Signs Date Time Temp Pulse Resp B/P (MAP) Pulse Ox O2 Delivery O2 Flow Rate FiO2 02/20/17 08:00 97.1 73 18 138/84 (102) 96 02/19/17 14:45 Room Air 02/19/17 14:30 2 Cardiovascular: Regular Lungs: Clear Abdomen: Other (lap sites c/d/i; abdomen soft; minimal tenderness at incisions sites ) Extremities: No edema A/P Assessment and Plan 52 year old male POD1 lap manuel -Advance to heart healthy diet -Pain control -DC IVF -Okay to DC home if tolerates breakfast and lunch -Follow up with Dr. Weaver in about 1 week -[place] rx on chart Attending Note - Dr. Weaver Abdomen benign; steristrips with minimal drainage. The exam, history, and the medical decision-making described in the above note were completed with the assistance of the mid-level provider. I reviewed and agree with the findings presented. I attest that I had a [id number] encounter with the patient on the same day, and personally performed and documented my assessment and findings in the medical record. India Kinney Feb 20, 2017 12:23 Romero Weaver MD Feb 24, 2017 18:19
--- NOTE | 2017-02-20 20:12 | MP ---
cc: LUCY WEAVER M.D. DATE OF SURGERY: 02/19/2017. PREOPERATIVE DIAGNOSIS: Acute cholecystitis POSTOPERATIVE DIAGNOSIS: 1. Acute cholecystitis. 2. Incarcerated umbilical hernia. OPERATIVE PROCEDURE PERFORMED: 1. Laparoscopic cholecystectomy. 2. Primary repair of umbilical hernia. SURGEON: Lucy Weaver MD. ANESTHESIA: General endotracheal anesthesia. ESTIMATED BLOOD LOSS: 50 mL. FLUIDS: 1000 mL crystalloid. COMPLICATIONS: None. DRAINS: None. SPECIMEN: Gallbladder to pathology. DESCRIPTION OF THE PROCEDURE IN DETAIL: The patient was taken to the operating room and placed on the operating table in the supine position. After an adequate level of general endotracheal anesthesia was achieved, the abdomen was prepped and draped in usual fashion. Time-out was taken confirming the correct patient, site and procedure be performed. Skin and subcutaneous tissue was infiltrated with local anesthetic. An incision was made in the umbilicus and carried through the fascia sharply. The umbilical hernia comprising preperitoneal fat was reduced into the abdominal cavity and the fascial opening increased slightly to allow for placement of the balloon trocar. A 12 mm balloon trocar was then inserted and the balloon inflated. The abdomen was insufflated. The patient was placed in reverse Trendelenburg position. A 0-degree 5-mm lens was inserted. Three 5 mm trocars were inserted with the first to the right of falciform ligament and second and third in the right subcostal region. All entered the abdominal cavity under direct vision uneventfully. The fundus of the gallbladder was then grasped and retracted upward. Bile spilled and this was immediately aspirated. The fundus was then retracted up and over the dome of the liver. The cystic duct-infundibular junction was circumferentially dissected as was the cystic artery. It should be noted that the patient had two branches of the cystic artery with a more posterior branch and a more superior branch. Both of these were doubly clipped proximally, singly clipped on the gallbladder side and divided. As the patient had essentially normal liver function tests, nondilated common bile duct and as the anatomy was clearly identified, a cholangiogram was not obtained. The cystic duct was doubly clipped distally, singly clipped on the gallbladder side and divided as well. The gallbladder was dissected off the liver bed with electrodissection. The gallbladder was completely decompressed and was then grasped and removed via the umbilical port and passed off the table. The upper abdomen was re-visualized and one small bleeding point on the liver bed was made hemostatic with electrocautery. The cystic artery stumps and cystic duct stump were all re-examined found to be clean and dry. At this point insufflation was discontinued and the upper abdominal trocars were removed under direct vision. No bleeding was noted from the trocar sites. The laparoscope and umbilical port were then removed. The fascia was closed in the umbilicus with #0 Prolene suture in an interrupted fashion; this was done longitudinally to minimize the risk of recurrent herniation. The skin was closed at all trocar sites with 4-0 Vicryl in an interrupted buried fashion. All sites were dressed with Steri-Strips. The patient was extubated and taken back to the recovery room in stable condition. He tolerated procedure well. MD TERRELL Koch/RM /9:28 PM /8:09 PM
== END 2017-02-20 13:45 | disposition home or self-care (01) | DRG 418 ==
LOC: PHED 00:38 → PHEDA 03:03 → PH3A 04:10
PROVIDERS: ADMIT Family Medicine; ATTEND Family Medicine
PROC: 0FT44ZZ Resection of Gallbladder, Percutaneous Endoscopic Approach (ICD-10-PCS; principal; 2017-02-20)
PROC: 0WQF0ZZ Repair Abdominal Wall, Open Approach (ICD-10-PCS; 2017-02-20)
DX: K81.0 Acute cholecystitis (principal); K42.0 Umbilical hernia with obstruction, without gangrene; D68.51 Activated protein C resistance; I10 Essential (primary) hypertension; M10.9 Gout, unspecified; N28.89 Other specified disorders of kidney and ureter; E83.119 Hemochromatosis, unspecified; Z86.711 Personal history of pulmonary embolism; Z86.718 Personal history of other venous thrombosis and embolism; Z87.891 Personal history of nicotine dependence
CPT/HCPCS: 74177; 76705; 80053; 81001; 82948; 83690; 85025; 85610; 88304; 93005; 96361; 96365; 96375; C9113; J0131; J2250; J2270; J2405; J2543; J3010; J7030; J7120; Q9967

== ENCOUNTER 2017-11-17 17:26 | Observation (INO) ==
--- NOTE | 2017-11-17 17:59 | ED ---
HPI General Chief Complaint: Chest Pain Stated Complaint: Chest Pain Time Seen by Provider: 11/17/17 17:45 Source: patient Mode of arrival: ambulatory Limitations: no limitations History of Present Illness HPI narrative: 52yo M with PMH of bilateral PE, right DVT presents to the ED with c/o midsternal chest pain for a few days. Said it is pressure like, nonradiating, moderate in severity around a 5 out of 10. Said he has also been having right calf pain and cramping for a few days. Said it feels like last time he had PE which was a few years ago and had stopped xarelto few years ago. Does feel mildly sob. Denies any fever, hemoptysis, n/v, abdominal pain, focal weakness or numbness. Complete Quality Measures for STEMI Alert Patients Related Data Home Medications Medication Instructions Recorded Confirmed allopurinol 300 mg PO DAILY 11/17/17 11/17/17 amlodipine 5 mg PO DAILY 11/17/17 11/17/17 bupropion HCl 450 mg PO DAILY 11/17/17 11/17/17 buspirone 5 mg PO DAILY 11/17/17 11/17/17 lisinopril 20 mg PO DAILY 11/17/17 11/17/17 Allergies Allergy/AdvReac Type Severity Reaction Status Date / Time No Known Allergies Allergy Unverified 11/17/17 20:48 Review of Systems ROS Unobtainable All other systems reviewed negative except as stated in HPI [facility] Medical History Medical History Gout (Acute) HTN (hypertension) (Acute) History of blood clots (Acute) History of depression (Acute) History of pulmonary embolism (Acute) Sleep apnea (Acute) Surgical History Surgical History History of cholecystectomy (Acute) History of right knee joint replacement (Acute) Social History Social History Substance History: No History of Abuse Smoking Status: Former smoker How Often Do You Have a Drink Containing Alcohol: 2 to 4 times a month Recent Travel in [place] within the Last 8 Weeks: No Recent Out of Country Travel within the Last 8 Weeks: No Exam Narrative Exam Narrative: GENERAL: 52yo M not in distress. SKIN: Focused skin assessment warm/dry. HEAD: Atraumatic. Normocephalic. EYES: Pupils equal and round. No scleral icterus. No injection or drainage. ENT: No nasal bleeding or discharge. Mucous membranes pink and moist. NECK: Trachea midline. No JVD. CARDIOVASCULAR: Regular rate and rhythm. No murmur appreciated. RESPIRATORY: No accessory muscle use. Clear to auscultation. Breath sounds equal bilaterally. GASTROINTESTINAL: Abdomen soft, non-tender, nondistended. MUSCULOSKELETAL: No obvious deformities. No clubbing. No cyanosis. No edema. +TTP right calf. Distal pulses intact bilateral lower extremities. NEUROLOGICAL: Awake and alert. No obvious cranial nerve deficits. Motor grossly within normal limits. Normal speech. PSYCHIATRIC: Appropriate mood and affect; insight and judgment normal. Course Initial Documented Vital Signs Temperature 98.3 F 11/17/17 18:06 Pulse Rate 77 11/17/17 18:06 Respiratory Rate 18 11/17/17 18:06 Blood Pressure 150/79 H 11/17/17 18:06 Pulse Oximetry 97 11/17/17 18:06 Last Documented Vital Signs Temperature 98.3 F 11/17/17 18:06 Pulse Rate 76 11/17/17 22:33 Respiratory Rate 20 11/17/17 22:33 Blood Pressure 133/87 11/17/17 22:33 Pulse Oximetry 97 11/17/17 22:33 Medical Decision Making [facility] Narrative Medical decision making narrative: 52yo M with c/o midsternal chest pain for a few days but now constant. Labs reviewed, no leukocytosis. H/H normal. Troponin negative. Glucose mildly decreased at 66, will give juice. CPK normal at 62. US RLE negative for DVT. CTA negative for PE. Pt has never had a stress test and has cardiac risk factors such as former cig smoker, HTN and age. Will admit for chest pain center. Discussed with Dr. Garcia and accepted to his service. Differential Diagnosis Differential Diagnosis: PE vs. ACS vs. pneumonia vs. rhabdomyolysis vs. DVT Lab Data Result diagrams: 11/17/17 18:00 11/17/17 18:00 Lab Results 11/17/17 11/17/17 11/17/17 Range/Units 18:00 18:00 18:00 CBC w Diff Auto diff final WBC 7.8 (4.0-11.0) th/mm3 RBC 5.23 (4.50-5.90) mil/mm3 Hgb 16.3 (13.0-17.0) gm/dL Hct 47.8 (39.0-51.0) % MCV 91.4 (80.0-100.0) fL MCH 31.2 (27.0-34.0) pg MCHC 34.1 (32.0-36.0) % RDW 12.8 (11.6-17.2) % Plt Count 204 (150-450) th/mm3 MPV 8.1 (7.0-11.0) fL Neut % (Auto) 68.8 (16.0-70.0) % Lymph % (Auto) 19.0 (9.0-44.0) % [place] % (Auto) 7.3 (0.0-8.0) % Eos % (Auto) 4.1 H (0.0-4.0) % Baso % (Auto) 0.8 (0.0-2.0) % Neut # (Auto) 5.3 (1.8-7.7) th/mm3 Lymph # (Auto) 1.5 (1.0-4.8) th/mm3 [place] # (Auto) 0.6 (0.0-0.9) th/mm3 Eos # (Auto) 0.3 (0.0-0.4) th/mm3 Baso # (Auto) 0.1 (0.0-0.2) th/mm3 WBC Differential . Differential Comment . PT 10.5 (9.8-11.6) sec INR 1.0 Ratio APTT 23.1 L (24.3-30.1) sec Sodium 140 (136-145) meq/L Potassium 3.9 (3.5-5.1) meq/L Chloride 105 (98-107) meq/L Carbon Dioxide 25.5 (21.0-32.0) meq/L Anion Gap 10 (5-15) meq/L BUN 13 (7-18) mg/dL Creatinine 1.20 (0.60-1.30) mg/dL Estimated GFR 64 L (>89) mL/min POC Glucose (68-110) mg/dl Random Glucose 66 L (74-106) mg/dL Calcium 9.0 (8.5-10.1) mg/dL Total Creatine Kinase 62 (39-308) U/L Troponin I Less than 0.02 L (0.02-0.05) ng/mL 11/17/17 11/17/17 Range/Units 20:40 20:46 CBC w Diff WBC (4.0-11.0) th/mm3 RBC (4.50-5.90) mil/mm3 Hgb (13.0-17.0) gm/dL Hct (39.0-51.0) % MCV (80.0-100.0) fL MCH (27.0-34.0) pg MCHC (32.0-36.0) % RDW (11.6-17.2) % Plt Count (150-450) th/mm3 MPV (7.0-11.0) fL Neut % (Auto) (16.0-70.0) % Lymph % (Auto) (9.0-44.0) % [place] % (Auto) (0.0-8.0) % Eos % (Auto) (0.0-4.0) % Baso % (Auto) (0.0-2.0) % Neut # (Auto) (1.8-7.7) th/mm3 Lymph # (Auto) (1.0-4.8) th/mm3 [place] # (Auto) (0.0-0.9) th/mm3 Eos # (Auto) (0.0-0.4) th/mm3 Baso # (Auto) (0.0-0.2) th/mm3 WBC Differential Differential Comment PT (9.8-11.6) sec INR Ratio APTT (24.3-30.1) sec Sodium (136-145) meq/L Potassium (3.5-5.1) meq/L Chloride (98-107) meq/L Carbon Dioxide (21.0-32.0) meq/L Anion Gap (5-15) meq/L BUN (7-18) mg/dL Creatinine (0.60-1.30) mg/dL Estimated GFR (>89) mL/min POC Glucose 90 (68-110) mg/dl Random Glucose (74-106) mg/dL Calcium (8.5-10.1) mg/dL Total Creatine Kinase 50 (39-308) U/L Troponin I Less than 0.02 L (0.02-0.05) ng/mL Imaging Data Radiologist's impression: Venous Doppler Study 11/17/17 17:48 CONCLUSION: 1. The study is negative for lower extremity deep venous thrombosis. Chest CTA 11/17/17 18:47 CONCLUSION: 1. Negative for pulmonary embolus. No acute findings. ECG Data EKG Prior to Arrival: No Attestation: I personally reviewed and interpreted this ECG as follows: Interpretation: NSR 78bpm. Normal axis. Mild ST depression diffusely. No ST elevation. Discharge Plan Discharge Disposition Patient Disposition: 30 Still Patient Discharge Details Diagnosis: Chest pain Physicians Team ED Provider: Elmira Regalado Primary Care Provider: [facility],Physician 's Attending Provider: Jeremie Garcia Discharge Interventions Interventions: Vital Signs Last Done: 11/17/17 19:52 Status ED Status: Admitted Observation Patient
[2017-11-17 18:04] LABS: Baso # (Auto) 0.1 th/mm3 (0.0-0.2); Baso % (Auto) 0.8 % (0.0-2.0); Eos # (Auto) 0.3 th/mm3 (0.0-0.4); Eos % (Auto) 4.1 % (0.0-4.0); Hematocrit 47.8 % (39.0-51.0); Hemoglobin 16.3 gm/dL (13.0-17.0); Lymph # (Auto) 1.5 th/mm3 (1.0-4.8); Mean Corpuscular HGB Conc 34.1 % (32.0-36.0); Mean Corpuscular Hemoglobin 31.2 pg (27.0-34.0); Mean Corpuscular Volume 91.4 fL (80.0-100.0); Mean Platelet Volume 8.1 fL (7.0-11.0); Mono # (Auto) 0.6 th/mm3 (0.0-0.9); Mono % (Auto) 7.3 % (0.0-8.0); Neut # (Auto) 5.3 th/mm3 (1.8-7.7); Neut % (Auto) 68.8 % (16.0-70.0); Platelet Count 204 th/mm3 (150-450); Red Blood Count 5.23 mil/mm3 (4.50-5.90); Red Cell Distribution Width 12.8 % (11.6-17.2); White Blood Count 7.8 th/mm3 (4.0-11.0)
[2017-11-17 18:11] LABS: Chloride 105 meq/L (98-107); Potassium 3.9 meq/L (3.5-5.1); Sodium 140 meq/L (136-145)
[2017-11-17 18:14] LABS: Anion Gap 10 meq/L (5-15); Blood Urea Nitrogen 13 mg/dL (7-18); Carbon Dioxide 25.5 meq/L (21.0-32.0); Glucose,Random 66 mg/dL (74-106)
[2017-11-17 18:17] LABS: Activated Partial Thrombo Time 23.1 sec (24.3-30.1); Glomerular Filtration Rate 64 mL/min (>89); Prothrombin Time 10.5 sec (9.8-11.6)
[2017-11-17 18:36] LABS: Creatine Kinase 62 U/L (39-308)
--- NOTE | 2017-11-17 19:14 | US ---
EXAM DATE: 11/17/2017 6:49 PM EDT AGE/SEX: 52 years / Male INDICATIONS: Right leg pain. CLINICAL DATA: This is the patient's initial encounter. Patient reports that signs and symptoms have been present for 4 - 6 days and indicates a pain score of 3/10. MEDICAL/SURGICAL HISTORY: Deep venous thrombosis. Hypertension. Gout. Pulmonary embolism. Ch olecystectomy. Right knee replacement. COMPARISON: [facility], US LEG RIGHT VENOUS DOPPLER, 07/13/2014. . TECHNIQUE: Venous ultrasound of both lower extremities was performed from the inguinal ligament to t he proximal calf. Real-time, color Doppler and spectral tracing, compression and augmentation techni ques were used. FINDINGS: Normal compression of the deep venous system from the inguinal region to the proximal calf . No echogenic clot is seen. Normal response of the venous system to augmentation and respiration. CONCLUSION: 1. The study is negative for lower extremity deep venous thrombosis. Electronically signed by: Francois Yates MD 11/17/2017 7:12 PM EDT
--- NOTE | 2017-11-17 19:59 | CT ---
EXAM DATE: 11/17/2017 7:40 PM EDT AGE/SEX: 52 years / Male INDICATIONS: Chest and right leg pain. History of blood clots and emboli. CLINICAL DATA: This is the patient's initial encounter. Patient reports that signs and symptoms have been present for 2 days and indicates a pain score of 5/10. MEDICAL/SURGICAL HISTORY: Hypertension. Deep venous thrombosis. Pulmonary emboli Total knee repla cement, right. RADIATION DOSE: 24.73 CTDI (mGy) COMPARISON: [facility], CT PULMONARY ANGIOGRAM, 07/13/2014. . TECHNIQUE: Volumetric scanning was performed using a multi-row detector CT scanner during bolus infu aden of 80 ml Omnipaque 350 (iohexol) nonionic water-soluble contrast as a single exam dose. The j luis a was post processed with a variety of visualization algorithms including full volume maximum intensi ty projection and sliding thin slab reformation. Using automated exposure control and adjustment of the mA and/or kV according to patient size, radiation dose was kept as low as reasonably achievable t o obtain optimal diagnostic quality images. DICOM format image data is available electronically for review and comparison. FINDINGS: No focal consolidation or significant effusion. Minimal dependent atelectasis in the lungs. No hilar, mediastinal or axillary adenopathy. No acute findings in the upper abdomen. Previous cholecystectomy . CONCLUSION: 1. Negative for pulmonary embolus. No acute findings. Electronically signed by: Francois Yates MD 11/17/2017 7:58 PM EDT
[2017-11-17] MEDS ORDERED: Aspirin 325 MG Tablet PO ONE (20:16)
[2017-11-17 21:17] LABS: Creatine Kinase 50 U/L (39-308)
[2017-11-17 23:55] LABS: Creatine Kinase 44 U/L (39-308)
--- NOTE | 2017-11-18 07:57 | P.HP ---
History of Present Illness Primary Care Physician: Physician [facility] Chief Complaint: Chest pain History of Present Illness: 52-year-old male with known history of hypertension, pulmonary emboli , DVT, gout, renal cyst, fatty liver who presented to the emergency department for evaluation of chest pain. Patient states that over the last 3-4 days he started having multiple symptoms. Patient states that he started with the right lower extremity cramping and then a chest pressure located in the center part of his chest. This went on for a couple days in the pressure in his chest progressively got worse to where it was almost constant. He started developing sharp stabbing pains in the middle part of his chest radiating over to his left side which will last for couple minutes at a time and resolve on their own. Patient states that the pain can happen while he is at rest or during exertion. Patient states that he did get some lightheadedness, dizziness, shortness of breath whenever he had the discomfort. Patient indicates that the pain was a 5/ 10 on a pain scale. He denied any profuse diaphoresis, nausea, vomiting. Patient denies any previous cardiac workup. Patient with cardiac risk factors to include age, male, history of tobacco use. Patient did have workup emergency department ruled out any embolic event with ultrasound and pulmonary angiogram. ER physician recommended that the patient be observed in the hospital for further evaluation and management. - Diagnosis (1) Chest pain Review of Systems All other systems reviewed negative except as stated in HPI Cardiovascular: Reports chest pain, Reports shortness of breath Musculoskeletal: Reports muscle cramps (Right lower extremity) PMF - History History Provided By: Patient - Medical History Medical History: Medical History (Last Reviewed 11/18/17 @ 07:40 by CHERELLE White) Gout HTN (hypertension) History of blood clots History of depression History of pulmonary embolism Sleep apnea - Surgical History Surgical History: Surgical History (Last Reviewed 11/18/17 @ 07:40 by CHERELLE White) History of cholecystectomy History of right knee joint replacement - Family History Family History: Family History (Last Updated 11/18/17 @ 07:40 by CHERELLE White) Other No pertinent family history - Tobacco History Second Hand Smoke Exposure: No Tobacco Use In Past 30 Days: No Smoking Status: Former smoker Tobacco Type: Cigarettes Number of Pack Years (if former smoker): 4 - Alcohol History How Often Do You Have a Drink Containing Alcohol: 2 to 4 times a month - Substance Use History Substance History: No History of Abuse - Travel History Recent Travel in the [place] Within the Last 8 Weeks: No Recent Travel Out of the Country Within the Last 8 Weeks: No - Immunization History Tetanus Immunization: <5 Years Hx Influenza Vaccine This Season: No Medications and Allergies Active Medications: Active Medications Allopurinol (Zyloprim) 300 mg PO DAILY JOSIAH Amlodipine Besylate (Norvasc) 5 mg PO DAILY JOSIAH Buspirone HCl (Buspar) 5 mg PO DAILY JOSIAH Lisinopril (Prinivil) 20 mg PO DAILY JOSIAH Sodium Chloride (Ns Flush) 2 ml IV.FLUSH BID JOSIAH Last Admin: 11/17/17 20:42 Dose: 2 ml Sodium Chloride (Ns Flush) 2 ml IV.FLUSH PRN PRN PRN Reason: FLUSH AFTER USING IV ACCESS Allergies Allergy/AdvReac Type Severity Reaction Status Date / Time No Known Allergies Allergy Unverified 11/17/17 20:48 Home Medications Medication Instructions Recorded Confirmed Type allopurinol 300 mg PO DAILY 11/17/17 11/17/17 History amlodipine 5 mg PO DAILY 11/17/17 11/17/17 History bupropion HCl 450 mg PO DAILY 11/17/17 11/17/17 History buspirone 5 mg PO DAILY 11/17/17 11/17/17 History lisinopril 20 mg PO DAILY 11/17/17 11/17/17 History Exam Vital signs: Vital Signs 11/17/17 18:06 11/17/17 18:46 11/17/17 19:52 Temperature 98.3 F Pulse Rate 77 74 70 Respiratory Rate 18 18 18 Blood Pressure 150/79 H 135/76 134/74 Pulse Oximetry 97 96 97 11/17/17 22:33 11/17/17 23:13 11/18/17 01:07 Temperature Pulse Rate 76 67 Respiratory Rate 20 20 Blood Pressure 133/87 126/84 Pulse Oximetry 97 96 96 11/18/17 02:03 11/18/17 04:00 Temperature 96.5 F L 96.3 F L Pulse Rate 59 L 59 L Respiratory Rate 20 20 Blood Pressure 131/86 119/76 Pulse Oximetry 97 96 Intake & Output 11/17/17 11/18/17 11/18/17 18:59 06:59 18:59 Intake Total 0 / 0 Balance 0 / 0 Weight 105 kg 105.2 kg Intake: Oral 0 / 0 Other: # Voids 1 Date of Last Bowel Movement 11/17/17 Weight On Admission 105 kg Narrative: GENERAL: Well-developed, well-nourished, in no acute distress. alert and orientated HEENT: Head is normocephalic without any lesions or masses noted. Facial features are symmetric. Eyes: Pupils equal round reactive to light. Extraocular muscles are intact. Conjunctivae were clear. Oropharyngeal: Pharynx without any erythema edema. Tongue is midline without deviation. Buccal mucosa is moist without any masses or lesions NECK: Supple without any masses. Trachea midline no deviation. No JVD, no bruits are appreciated CARDIAC: Regular rhythm, regular rate. S1/S2 are heard. No murmurs gallops or rubs. LUNGS: Clear to auscultation bilaterally. No wheeze, rhonchi or rales. No use of accessory muscles on inspiration or expiration. ABDOMEN: Soft, nontender. Nondistended. Bowel sounds heard in all 4 quadrants. No organomegaly or masses. Negative rebound, negative guarding EXTREMITIES: No edema, pulses are equal bilaterally. No cyanosis or clubbing NEUROLOGY: Mood and affect appear appropriate. Cranial nerves II through XII grossly intact. Muscle strength 5/5 in upper and lower extremities bilaterally. Deep tendon reflexes are 2+ in upper and lower extremities bilaterally. Results - Labs CBC & Chem 7: 11/17/17 18:00 11/17/17 18:00 Labs: Laboratory Results - last 24 hr 11/17/17 11/17/17 11/17/17 18:00 18:00 18:00 CBC w Diff Auto diff final WBC 7.8 RBC 5.23 Hgb 16.3 Hct 47.8 MCV 91.4 MCH 31.2 MCHC 34.1 RDW 12.8 Plt Count 204 MPV 8.1 Neut % (Auto) 68.8 Lymph % (Auto) 19.0 Mccone % (Auto) 7.3 Eos % (Auto) 4.1 H Baso % (Auto) 0.8 Neut # (Auto) 5.3 Lymph # (Auto) 1.5 Mccone # (Auto) 0.6 Eos # (Auto) 0.3 Baso # (Auto) 0.1 WBC Differential . Differential Comment . PT 10.5 INR 1.0 APTT 23.1 L Sodium 140 Potassium 3.9 Chloride 105 Carbon Dioxide 25.5 Anion Gap 10 BUN 13 Creatinine 1.20 Estimated GFR 64 L POC Glucose Random Glucose 66 L Calcium 9.0 Total Creatine Kinase 62 Troponin I Less than 0.02 L 11/17/17 11/17/17 11/17/17 20:40 20:46 23:25 CBC w Diff WBC RBC Hgb Hct MCV MCH MCHC RDW Plt Count MPV Neut % (Auto) Lymph % (Auto) Mccone % (Auto) Eos % (Auto) Baso % (Auto) Neut # (Auto) Lymph # (Auto) Mccone # (Auto) Eos # (Auto) Baso # (Auto) WBC Differential Differential Comment PT INR APTT Sodium Potassium Chloride Carbon Dioxide Anion Gap BUN Creatinine Estimated GFR POC Glucose 90 Random Glucose Calcium Total Creatine Kinase 50 44 Troponin I Less than 0.02 L Less than 0.02 L 11/18/17 11/18/17 06:35 07:28 CBC w Diff WBC RBC Hgb Hct MCV MCH MCHC RDW Plt Count MPV Neut % (Auto) Lymph % (Auto) Mccone % (Auto) Eos % (Auto) Baso % (Auto) Neut # (Auto) Lymph # (Auto) Mccone # (Auto) Eos # (Auto) Baso # (Auto) WBC Differential Differential Comment PT INR APTT Sodium Potassium Chloride Carbon Dioxide Anion Gap BUN Creatinine Estimated GFR POC Glucose 104 102 Random Glucose Calcium Total Creatine Kinase Troponin I - Imaging Impressions Venous Doppler Study 11/17/17 17:48 CONCLUSION: 1. The study is negative for lower extremity deep venous thrombosis. Chest CTA 11/17/17 18:47 CONCLUSION: 1. Negative for pulmonary embolus. No acute findings. Caprini VTE Risk Assessment Caprini VTE Risk Assessment: Moderate/High Risk (score >= 2) Caprini Risk Assessment Model: Point Value = 1 Point Value = 2 Point Value = 3 Point Value = 5 Age 41-60 Minor surgery BMI > 25 kg/m2 Swollen legs Varicose veins or History of unexplained or recurrent spontaneous Oral contraceptives or hormone replacement Sepsis (< 1 month) Serious lung disease, including pneumonia (< 1 month) Abnormal pulmonary function Acute myocardial infarction Congestive heart failure (< 1 month) History of inflammatory bowel disease Medical patient at bed rest Age 61-74 Arthroscopic surgery Major open surgery (> 45 min) Laparoscopic surgery (> 45 min) Malignancy Confined to bed (> 72 hours) Immobilizing plaster cast Central venous access Age >= 75 History of VTE Family history of VTE Factor V Leiden Prothrombin [id number] Lupus anticoagulant Anticardiolipin antibodies Elevated serum homocysteine Heparin-induced thrombocytopenia Other congenital or acquired thrombophilia Stroke (< 1 month) Elective arthroplasty Hip, pelvis, or leg fracture Acute spinal cord injury (< 1 month) Prophylaxis Regimen: Total Risk Factor Score Risk Level Prophylaxis Regimen 0-1 Low Early ambulation 2 Moderate Order ONE of the following: *Sequential Compression Device (SCD) *Heparin 5000 units SQ BID 3-4 Higher Order ONE of the following medications: *Heparin 5000 units SQ TID *Enoxaparin/Lovenox 40 mg SQ daily (WT < 150 kg, CrCl > 30 mL/min) *Enoxaparin/Lovenox 30 mg SQ daily (WT < 150 kg, CrCl > 10-29 mL/min) *Enoxaparin/Lovenox 30 mg SQ BID (WT < 150 kg, CrCl > 30 mL/min) AND/OR *Sequential Compression Device (SCD) 5 or more Highest Order ONE of the following medications: *Heparin 5000 units SQ TID (Preferred with Epidurals) *Enoxaparin/Lovenox 40 mg SQ daily (WT < 150 kg, CrCl > 30 mL/min) *Enoxaparin/Lovenox 30 mg SQ daily (WT < 150 kg, CrCl > 10-29 mL/min) *Enoxaparin/Lovenox 30 mg SQ BID (WT < 150 kg, CrCl > 30 mL/min) AND *Sequential Compression Device (SCD) Assessment and Plan - Assessment (1) Chest pain Code(s): R07.9 - Chest pain, unspecified Status: Acute - Plan Chest pain, atypical -Patient with increased risk factors include age, male, hypertension, history of tobacco use -Patient has been ruled out for acute coronary event with serial cardiac enzymes and remained negative -Serial EKGs were reviewed by myself which did not indicate any acute changes. Does show sinus rhythm with nonspecific T-wave changes -Exercise stress test was performed and indicated ischemic changes in inferior/ lateral leads -Myocardial perfusion test was performed which did not indicate any acute abnormality or ischemia. Low risk -Patient continued on aspirin -Nitroglycerin as needed -Continue monitor telemetry Patient's chronic medical illnesses to include hypertension, gout -Home medications were continued DVT prevention -Sequential compression devices Discussed Condition With: Patient Discharge Planning: Discharge home in stable condition Activity: Ad zeina. Diet: Healthy heart diet Medication per medication reconciliation Follow-up with primary medical doctor in 1 week (1) Chest pain Qualifiers: Chest pain type: unspecified Qualified Code(s): R07.9 - Chest pain, unspecified
[2017-11-18 08:17] VITALS: TEMP 97.3
[2017-11-18 08:43] LABS: Albumin 3.9 g/dL (3.4-5.0)
[2017-11-18 08:48] LABS: Total Protein 7.1 g/dL (6.4-8.2)
[2017-11-18] MEDS ORDERED: Aspirin 325 MG Tablet PO SCH (09:00)
[2017-11-18] MEDS ORDERED: amLODIPine 5 MG Tablet PO SCH (09:00)
[2017-11-18] MEDS ORDERED: Allopurinol 300 MG Tablet PO SCH (09:00)
[2017-11-18] MEDS ORDERED: Lisinopril 20 MG Tablet PO SCH (09:00)
--- NOTE | 2017-11-18 10:19 | ECG ---
Date Performed: 11/17/2017 Time Performed: 20:30:04 PTAGE: 52 years EKG: Sinus rhythm NONSPECIFIC T-WAVE ABNORMALITY BORDERLINE ECG Since the PREVIOUS TRACING , no significant change noted PREVIOUS TRACIN11/17/2017 17.33 DOCTOR: Zainab Kowalski Interpretating Date/Time 11/18/2017 10:17:56
--- NOTE | 2017-11-18 10:19 | ECG ---
Date Performed: 11/17/2017 Time Performed: 17:33:17 PTAGE: 52 years EKG: Sinus rhythm NONSPECIFIC T-WAVE ABNORMALITY BORDERLINE ECG Since the PREVIOUS TRACING , no significant change noted PREVIOUS TRACIN02/19/2017 09.49 DOCTOR: Zainab Kowalski Interpretating Date/Time 11/18/2017 10:18:06
--- NOTE | 2017-11-18 10:25 | TR ---
Date Performed: 11/18/2017 Time Performed: 09:05:33 DOCTOR: Seth Stephens DRUG LIST: CLINICAL HISTORY: CHEST PAIN REASON FOR TEST: Angina REASON FOR ENDING: Completed Protocol OBSERVATION: Arrhythmia: None Chest Pain: None CONCLUSION: Patient tolerated LUIS CARLOS protocol with Total Exercise Time=8:21 Maximum CA=793 % Max HR Achieved=87.0% Maximum YK=250/82 , Testing stopped secondary to goals acheived, Patient reasched t arget HR, During peak exercise, patient was asymptomatic, Flat slow upsloping ST depression were note d in II, III, aVf, V5, V6. HR and BP appropriate response to exercise, Recovery period, Patient was a symptomatic, HR and BP returned to baseline COMMENTS: NS but very suggestive ST depression suggesting ischemia. Further evaluation needed.
--- NOTE | 2017-11-18 10:31 | ECG ---
Date Performed: 11/17/2017 Time Performed: 23:14:36 PTAGE: 52 years EKG: Sinus rhythm WITH OCCASIONAL SUPRAVENTRICULAR PREMATURE COMPLEXES MODERATE VOLTAGE CRITERIA FOR LVH, CONSIDER NOR MAL VARIANT NONSPECIFIC T-WAVE ABNORMALITY BORDERLINE ECG Largely unchanged from previous PREVIOUS TRACING : 11/17/2017 20.30 DOCTOR: Seth Stephens Interpretating Date/Time 11/18/2017 10:29:53
[2017-11-18] MEDS ORDERED: Regadenoson Inj 0.4 MG/5 ML Syringe IV.PUSH ONE (12:45)
[2017-11-18 12:46] VITALS: BP 123/73; PULSE 61; RESP 20; O2SAT 96
--- NOTE | 2017-11-18 13:57 | NM ---
EXAM DATE: 11/18/2017 1:52 PM EDT AGE/SEX: 52 years / Male INDICATIONS:Angina. Abnormal Exercise Treadmill Test Mid chest pain for three days. CLINICAL DATA: This is the patient's initial encounter. Patient reports that signs and symptoms have been present for 3 days and indicates a pain score of 5/10. MEDICAL/SURGICAL HISTORY: Hypertension. Cholecystectomy. Total knee replacement, right. COMPARISON: No prior exams available for comparison. No external comparison. DOSE: 11.0 mCi Tc 99m Myoview at rest 35.0 mCi [id number] at stress 0.4 mg Lexiscan STRESS SYMPTOMS: Shortness of breath and chest pressure. EJECTION FRACTION: 61 % TECHNIQUE: The patient underwent pharmacologic stress with infusion of prescribed dose. Continuous ECG tracing was monitored during stress. Gated SPECT imaging was performed after stress and conventi onal SPECT imaging was performed at rest. The examination was performed on a SPECT/CT scanner, both attenuation and non-corrected datasets were reviewed. FINDINGS: Distribution: The maximum perfused segment at stress is in the septal wall. Perfusion Study: The pattern of perfusion at stress is within normal limits. Gated Study: There are intact wall motion and wall thickening without hypokinetic or dyskinetic segm ents. The ejection fraction is calculated at 61%. RISK CATEGORY: Low (<1% Annual Motality Rate) CONCLUSION: 1. No reversible perfusion defect to indicate stress-induced myocardial ischemia identified. 2. Ejection fraction is within the range of normal. Electronically signed by: Mario Calhoun MD 11/18/2017 1:56 PM EDT
--- NOTE | 2017-11-19 10:56 | TR ---
Date Performed: 11/18/2017 Time Performed: 13:05:12 DOCTOR: Mitesh Zavala DRUG LIST: CLINICAL HISTORY: CHEST PAIN REASON FOR TEST: ABNORMAL ETT REASON FOR ENDING: OBSERVATION: CONCLUSION: COMMENTS: Lexiscan stress test was performed under standard four minute protocol. Radionuclide was injected one minute prior to ending the test. No electrocardiographic abormalities were present t o suggest ischemia. Nuclear imaging and interpretation are pending.
== END 2017-11-18 14:25 | disposition home or self-care (01) ==
LOC: PHED 17:26 → PHEDA 17:26 → PH3 17:26
PROVIDERS: ADMIT Hospitalist; ATTEND Hospitalist